=== PATIENT | male | born 1990 | race Hispanic/Latino ===

== ENCOUNTER 2019-05-17 14:19 | Emergency (ER) | payer OTHER ==
[2019-05-17] MEDS ORDERED: ATIVAN ONE (14:50)
[2019-05-17] MEDS ORDERED: NACL 0.9% 1000 ML 1,000 ML IV ONE (14:59)
[2019-05-17 15:26] LABS: Bilirubin,Urine NEG (Negative); Blood,Urine SM (Negative); Color,Urine Straw (Yellow); Mucus,Urine FEW /HPF; Urobilinogen,Urine < 2.0 mg/dL (<2.0)
[2019-05-17 15:42] LABS: Amphetamine Screen,Urine PRESUMPTIVE NEGATIVE; Cocaine Screen,Urine PRESUMPTIVE NEGATIVE; Methadone Screen,Urine PRESUMPTIVE NEGATIVE; Opiate Screen,Urine PRESUMPTIVE NEGATIVE
[2019-05-17 15:47] LABS: Basophils # (Auto) 0.1 K/mm3 (0.0-0.1); Basophils % (Auto) 0.5 % (0.0-1.8); Eosinophils # (Auto) 0.1 K/mm3 (0.0-0.4); Eosinophils % (Auto) 1.2 % (0.0-4.3); Hematocrit 48.3 % (35.5-45.6); Hemoglobin 16.3 gm/dl (11.8-15.2); Lymphocytes # (Auto) 2.1 K/mm3 (1.2-5.4); Mean Corpuscular HGB Conc 34 % (32-34); Mean Corpuscular Volume 89 fl (84-94); Monocytes # (Auto) 0.4 K/mm3 (0.0-0.8); Monocytes % (Auto) 4.3 % (0.0-7.3); Red Blood Count 5.46 M/mm3 (3.65-5.03); Red Cell Distribution Width 13.7 % (13.2-15.2)
[2019-05-17 15:48] LABS: Platelet Count 155 K/mm3 (140-440)
[2019-05-17 15:54] LABS: Benzodiazepines Screen,Urine PRESUMPTIVE POSITIVE; Cannabinoid Screen,Urine PRESUMPTIVE POSITIVE
[2019-05-17 15:58] LABS: Alanine Aminotransferase 16 units/L (7-56); Albumin 4.9 g/dL (3.9-5); BUN/Creatinine Ratio 9; Blood Urea Nitrogen 9 mg/dL (9-20); Calcium 10.2 mg/dL (8.4-10.2); Hemolysis Index 16
[2019-05-17] MEDS ORDERED: KEPPRA 500 MG in D5W 100 ML IV ONE (16:38)
--- NOTE | 2019-05-17 17:35 | Cat Scan Report ---
CT BRAIN: 05/17/2019 INDICATION / CLINICAL INFORMATION: Seizure. COMPARISON: 06/11/2016 FINDINGS: BRAIN/INTRACRANIAL STRUCTURES: Unenhanced CT images of the brain demonstrate no evidence of acute int racranial abnormality. Ventricles and sulci are normal in size and shape. There is no evidence of acute ischemic injury, hemorrhage, or mass. There are no abnormal extra-axial fluid collections. There has been no change when compared to the prior exam from 06/11/2016. EXTRACRANIAL STRUCTURES: Unremarkable. IMPRESSION: No acute abnormality. All CT scans at this location are performed using dose reduction to ALARA by means of automated expos ure control. Signer Name: Rangel Yip MD Signed: 05/17/2019 5:31 PM Workstation Name: '[id number]
[2019-05-17 17:36] VITALS: BP 142/101
--- NOTE | 2019-05-17 17:40 | Emergency Department Report ---
ED Seizure HPI - General Chief Complaint: Seizure Stated Complaint: SEIZURES Time Seen by Provider: 05/17/19 14:58 Source: patient Mode of arrival: Ambulatory Limitations: No Limitations - History of Present Illness Initial Comments: 29-year-old male presented to the ED with the chief complaint he had a seizure. Patient stated he had a history of seizure, and history of anxiety, has been off his Klonopin, had a seizure lasting 2 minutes today, which resolved itself, therefore his family presented him to the ED for further evaluation no fever, chills or night sweats. No headache. MD Complaint: seizure -: Gradual - Related Data Previous Rx's Medication Instructions Recorded Last Taken Type clonazePAM [Klonopin] 0.5 mg PO BID PRN #7 tablet 05/17/19 Unknown Rx levETIRAcetam [Keppra TAB] 250 mg PO BID 30 Days #60 tablet 05/17/19 Unknown Rx Allergies Allergy/AdvReac Type Severity Reaction Status Date / Time No Known Allergies Allergy Verified 06/12/16 12:11 ED Review of Systems ROS: Stated complaint: SEIZURES Other details as noted in HPI Comment: All other systems reviewed and negative ENT: denies: ear pain Gastrointestinal: denies: nausea Genitourinary: denies: urgency Skin: denies: rash Neurological: denies: headache Psychiatric: anxiety ED Past Medical Hx - Past Medical History Hx Congestive Heart Failure: No Hx Diabetes: No Hx Deep Vein Thrombosis: No Hx Asthma: No Hx COPD: No - Surgical History Hx Pacemaker: No Hx Internal Defibrillator: No - Social History Smoking Status: Never Smoker Substance Use Type: None - Medications Home Medications: Home Medications Medication Instructions Recorded Confirmed Last Taken Type clonazePAM [Klonopin] 0.5 mg PO BID PRN #7 tablet 05/17/19 Unknown Rx levETIRAcetam [Keppra TAB] 250 mg PO BID 30 Days #60 tablet 05/17/19 Unknown Rx ED Physical Exam - General Limitations: No Limitations General appearance: alert, in no apparent distress - Head Head exam: Present: atraumatic, normocephalic - Eye Eye exam: Present: normal appearance, PERRL, EOMI Pupils: Present: normal accommodation - ENT ENT exam: Present: normal exam, normal orophraynx - Neck Neck exam: Present: normal inspection - Respiratory Respiratory exam: Present: normal lung sounds bilaterally - Cardiovascular Cardiovascular Exam: Present: regular rate, normal rhythm - GI/Abdominal GI/Abdominal exam: Present: soft - Extremities Exam Extremities exam: Present: normal inspection - Neurological Exam Neurological exam: Present: alert, oriented X3, CN II-XII intact - Psychiatric Psychiatric exam: Present: normal affect, normal mood - Skin Skin exam: Present: warm ED Course Vital Signs 05/17/19 05/17/19 14:40 17:35 Temperature 98.2 F Pulse Rate 94 H 75 Respiratory 16 16 Rate Blood Pressure 155/97 Blood Pressure 142/101 [Left] O2 Sat by Pulse 100 96 Oximetry ED Medical Decision Making - Lab Data Result diagrams: 05/17/19 15:26 05/17/19 15:26 - Medical Decision Making ct head, - Differential Diagnosis anxiety, seizure, epilepsy, pseudoseizure Critical care attestation.: If time is entered above; I have spent that time in minutes in the direct care of this critically ill patient, excluding procedure time. ED Disposition Clinical Impression: Seizure Disposition: [id number] TO HOME OR SELFCARE Is pt being admited?: No Does the pt Need Aspirin: No Condition: Stable Instructions: Recurrent Seizures Adult (ED) Prescriptions: levETIRAcetam [Keppra TAB] 250 mg PO BID 30 Days #60 tablet clonazePAM [Klonopin] 0.5 mg PO BID PRN #7 tablet PRN Reason: Anxiety Referrals: BOBBI SHANE MD [Primary Care Provider] - 3-5 Days
== END 2019-05-17 18:32 | disposition home or self-care (01) ==
LOC: ED 14:19
DX: R56.9 Unspecified convulsions (principal); F41.9 Anxiety disorder, unspecified; Z79.899 Other long term (current) drug therapy
CPT/HCPCS: 36415; 70450; 80053; 80307; 81001; 85025; 93005; 93010; 96374; 99284; J1953; J7030; 80320; G0480; J2060